=== PATIENT | male | born 1990 | race African-American/Black ===

== ENCOUNTER 2023-04-21 12:05 | Outpatient (CLI) | payer BC | END 2023-04-21 12:06 | disposition home or self-care (01) | LOC: BICRAD 12:05 | PROVIDERS: ATTEND Internal Medicine Rheumatology | DX: M25.551 Pain in right hip (principal); M25.552 Pain in left hip; M25.752 Osteophyte, left hip; M25.751 Osteophyte, right hip | CPT/HCPCS: 72170 ==